=== PATIENT | female | born 2000 | race Caucasian/White ===

== ENCOUNTER → 2020-02-14 | Outpatient (CLI) | payer OTHER ==
[~2020-02-14] MED LIST: CALC667C6 PO; CHOL10003 PO; MULT-505 PO
--- NOTE | 2020-02-14 15:22 | RAD ---
INDICATION: Reason: RLQ Pelvic Pain / Spl. Instructions: / History: COMPARISON: None. TECHNIQUE: Grayscale and color ultrasound images uterus and adnexa. FINDINGS: Uterus: 72 x 39 x 37 mm. Endometrial Stripe: 11 mm. Right Ovary: 33 x 19 x 19 mm. The left ovary is not seen. Small free fluid. Vascular flow seen to the right ovary. The appendix is not seen. IMPRESSION: * Vascular flow seen to the right ovary. Electronically signed by: Toni Choudhury MD (02/14/2020 3:19 PM) [id number]
== END ==
LOC: US 10:33
PROVIDERS: ATTEND Internal Medicine Gastroenterology
DX: R10.9 Unspecified abdominal pain (principal); R10.2 Pelvic and perineal pain
CPT/HCPCS: 76856; 83516

== ENCOUNTER → 2020-03-06 | Outpatient (CLI) | payer OTHER | LOC: SPEC 13:28 | PROVIDERS: ATTEND Obstetrics & Gynecology | DX: Z01.419 Encounter for gynecological examination (general) (routine) without abnormal findings (principal) | CPT/HCPCS: 88175 ==

== ENCOUNTER → 2020-06-21 | Outpatient (CLI) | payer OTHER ==
[2020-06-22 16:16] LABS: RUBELLA IGG ANTIBODY 2.69 index (Immune >0.99)
== END ==
LOC: LAB 12:45
PROVIDERS: ATTEND Nurse Practitioner
DX: Z01.84 Encounter for antibody response examination (principal)
CPT/HCPCS: 36415; 86706; 86735; 86762; 86765; 86787